=== PATIENT | female | born 1950 | race Caucasian/White ===

== ENCOUNTER 2019-09-23 05:55 | Day surgery (SDC) | payer BC, MEDICARE ==
[~2019-09-23] VITALS: Ht 157.5 cm; Wt 82.5 kg
[~2019-09-23 05:55] MED LIST: ADVIL200 MG PO; NORCO 5-325 TA1 EACH PO; TYLENOL325 MG PO; VITAMIN D350 MC3 PO
[2019-09-23] MEDS ORDERED: BIOTIN10 MG PO (06:14)
--- NOTE | 2019-09-23 08:23 | NUR ---
09/23/19 0823 Meseret Mcdermott 0815 PATIENT ARRIVES TO RM 10 FOR RECOVERY. PATIENT RESTING QUIETLY WITH EYES CLOSED. AWAKENS WITH VERBAL STIMULI. RESP EVEN AND UNLABORED, MASK AT 8 LITERS. 0820 PATIENT AWAKE, SLIGHTLY DROWSY. RESP EVEN AND UNLABORED, MASK DECREASED TO 6 LITERS. PATIENT FOLLOWS COMMANDS TO COUGH AND DEEP BREATH. DENIES PAIN OR NAUSEA.
[2019-09-23] MEDS ORDERED: HYDROCODON-ACE1 EA11 PO (08:29)
[2019-09-23] MEDS ORDERED: SENNA LAX8.6 MG PO (08:30)
[2019-09-23] MEDS ORDERED: CELECOXIB200 MG PO (08:30)
--- NOTE | 2019-09-23 08:58 | NUR ---
PATIENT RESTING BACK IN BED, AWAKE TALKING WITH AND LAUGHING WHILE WATCHING TV. PATIENT WAS RECOVERED IN ROOM SECONDARY TO BREATHING TX AND POLICY WITH COVID PERCAUTIONS. DRESSING TO RIGHT SHOULDER C/D/I, STRONG PULSES TO ULNAR AND RADIAL, EXTREMITIY WARM. ICE APPLIED, KRYO BEING PUT IN PLACE BY NURSE AT THIS TIME. CALL LIGHT WITHIN REACH. PROVIDED ICE WATER AND CRACKERS. DISCUSSED CRITERIA FOR DISCHARGE, PATIENT AND VERBALIZED UNDERSTANDING.
--- NOTE | 2019-09-23 09:45 | NUR ---
PATIENT UP SEVERAL TIMES TO BATHROOM, STEADY ON FEET. VOIDING WELL. PAIN 0/10 ON PAIN SCALE. PATIENT STATES " I AM READY TO GO HOME" ENCOURAGED PATIENT TO EAT SOME CRACKERS AND SIP ON WATER. PATIENT APPEARS CONCERNED WILL GET SICK IF SHE HAS ANYTHIG TO EAT OR DRINK. DRESSING C/D/I, KRYO IN PLACE. PATIENT AWAKE AND ORIENTED WATCHING TELEVISION. AT BEDSIDE.
--- NOTE | 2019-09-23 10:20 | NUR ---
PATIENT UP GETTING DRESSED WITH , TOLERATING ACTIVITY WELL. TOLERATING CRACKERS AND WATER, NO NAUSEA. REPORTED WOULD BE BACK WITH DISCHARGE INSTRUCTION, PATIENT VERBALIZED OKAY. PROVIDED WITH EDUCATION ON PAIN MEDICAITON AND KRYO CUFF USE.
--- NOTE | 2019-09-23 10:45 | NUR ---
PROVIDED PATIENT WITH DISCHARGE EDUCATION, ANSWERED QUESTIONS AND CONCERNS. PATIENT DEMONSTRATED UNDERSTANDING. READ ALOUD DR. RAMIREZ TAKE HOME PACKET. ANSWERED QUESTIONS AND CONCERNS. PATIENT ABLE TO VERBALIZE BACK INSTRUCTION AND DEMONSTRATE UNDERSTANDING. PROVIDED WHEEL CHAIR RIDE TO FRONT.
--- NOTE | 2019-09-27 07:53 | OR ---
[facility] [address] [facility] [place], [place] [address] Signed DATE OF OPERATION: 09/23/2019 SURGEON: Monico Dimas MD PREOPERATIVE DIAGNOSIS: Rotator cuff tear, right shoulder. POSTOPERATIVE DIAGNOSIS: Rotator cuff tear, right shoulder. PROCEDURE: Right shoulder arthroscopy with rotator cuff repair. SENIOR ACCOUNT CLERK: None. ANESTHESIA: General. BLOOD LOSS: Minimal. IMPLANTS: 4.75 SwiveLock with FiberTape. BRIEF HISTORY: Kiel is a 68-year-old female with pain and weakness in her shoulder. MRI is consistent with a small to moderate-sized rotator cuff tear. Risks and benefits of operative treatment discussed with her and she elected to proceed. DESCRIPTION OF PROCEDURE: Once consent was obtained, she was taken into the operating room and after adequate anesthesia, she was placed in a beach chair position. All downside pressure points were well padded. The shoulder was prepped and draped in a standard sterile fashion. The shoulder was injected with 15 mL 0.25% Marcaine with epinephrine as was the subacromial space. The standard posterior portal was made and the scope was introduced in the shoulder. ARTHROSCOPIC FINDINGS: There was significant synovitis throughout the shoulder. There was some fraying of the Electronically Signed By: MONICO DIMAS MD 09/24/19 0738 Electronically Signed By: MONICO DIMAS MD 09/27/19 0758 PATIENT NAME: KIEL VARGHESE OPERATIVE REPORT DATE OF : 50 REPORT #: [id number] PHYSICIAN: MONICO DIMAS MD PCP: FANY BARRAZA MD REPORT IS CONFIDENTIAL AND NOT TO BE RELEASED WITHOUT AUTHORIZATION [facility] [address] [place], [place] [address] Signed anterior labrum, probably consistent with an old type 1 SLAP tear. There was no instability of the biceps or labrum itself. The glenohumeral surfaces were intact. The undersurface of the rotator cuff showed marked synovitis and a 1 cm slightly delaminated tear in the midportion of the supraspinatus. The subacromial space showed minimal bursitis with a type 1 acromion. DESCRIPTION OF PROCEDURE: Diagnostic arthroscopy was undertaken as noted above. We made an anterior lateral portal and introduced the shaver through the rotator cuff into the shoulder and debrided the labral tear and synovitis. I wanted to avoid the standard anterior portal since she just had a lipoma excision about 2-3 weeks ago, right in the region of the coracoid. The scope was then withdrawn, placed in subacromial space. The bursa was removed and the shoulder was placed under traction. The rotator cuff tear was then debrided sharply and mobilized. The base of the tuberosity was then cleared of soft tissue and roughened using the rasp. The FiberTape was then placed in an inverted mattress configuration in the rotator cuff tear. Using a 4.75 anchor, it was pulled down to the tuberosity and the anchor was deployed. Excellent fixation was obtained. The suture ends were cut and the shoulder was taken through range of motion and found to be intact. There was excellent bleeding from the repair site after the water was turned off. The scope withdrawn. Portals were closed with 3-0 nylon, dressed with ProWick dressing. She tolerated the procedure well. All sponge, needle, and instrument counts were correct. Monico Dimas MD BA/MODL /[id number] Copies: ~ Electronically Signed By: MONICO DIMAS MD 09/24/19 0738 Electronically Signed By: MONICO DIMAS MD 09/27/19 0758 PATIENT NAME: SON RAYKIEL MCINTYRE OPERATIVE REPORT DATE OF : 50 REPORT #: [id number] PHYSICIAN: MONICO DIMAS MD PCP: FANY BARRAZA MD REPORT IS CONFIDENTIAL AND NOT TO BE RELEASED WITHOUT AUTHORIZATION
== END 2019-09-23 10:45 | disposition home or self-care (01) ==
LOC: DS 05:55
PROVIDERS: Specialist
PROC: 0RHJ44Z Insertion of Internal Fixation Device into Right Shoulder Joint, Percutaneous Endoscopic Approach (ICD-10-PCS; 2019-09-23)
PROC: 0LQ14ZZ Repair Right Shoulder Tendon, Percutaneous Endoscopic Approach (ICD-10-PCS; principal; 2019-09-23 06:45)
DX: M75.101 Unspecified rotator cuff tear or rupture of right shoulder, not specified as traumatic (principal); M65.811 Other synovitis and tenosynovitis, right shoulder; M75.51 Bursitis of right shoulder; Z79.899 Other long term (current) drug therapy; Z88.5 Allergy status to narcotic agent; Z88.6 Allergy status to analgesic agent; Z91.012 Allergy to eggs
CPT/HCPCS: 00450; 64415; 76942; C1713; J0690; J1100; J2001; J2250; J2405; J2704; J2795; J7121